=== PATIENT | male | born 1970 | race Caucasian/White ===

== ENCOUNTER 2016-10-21 14:58 | Emergency (ER) | payer SELFPAY ==
[~2016-10-21 14:58] MED LIST: FLUO-1 PO; GEMF600 PO; IBUP600T26 PO; LISI-363 PO
[2016-10-21 15:00] VITALS: BP 143/93; PULSE 93; RESP 15; TEMP 98.2; O2SAT 100
[2016-10-21] MEDS ORDERED: TETANUS/DIPHTHERIA TOXOID ADULT 0.5 ML VIAL IM ONE (16:00)
[2016-10-21] MEDS ORDERED: PROZ40CA PO (16:12)
[2016-10-21] MEDS ORDERED: LISI10TA3 PO (16:12)
[2016-10-21] MEDS ORDERED: TRAZ50TA12 PO (16:12)
[2016-10-21 16:18] VITALS: BP 130/88; PULSE 69; RESP 15; O2SAT 100
[2016-10-21] MEDS ORDERED: CEPH-460 PO (16:50)
--- NOTE | 2016-10-21 16:50 | PD ---
HPI Chief Complaint: Laceration/Skin Injury Time Seen by Provider: 15:51 Travel History International Travel<30 days: No Contact w/Intl Traveler<30days: No Traveled to known affect area: No History of Present Illness HPI 46-year-old male presents to the emergency department for evaluation of a laceration to the [place] hand that occurred approximately one hour ago. Patient states he was moving a couch when a metal spike usually holds leg of the couch on cut his hand. Patient reports history of hypertension. He currently takes lisinopril, Prozac, trazodone. Patient denies any other injury. Patient does not believe his tetanus immunization is up-to-date. Patient denies loss of range of motion of any digits of the left hand. He has currently right-handed. No other complaints at this time. FORMERLY [facility], [facility] Past Medical History Depression: Yes Diminished Hearing: No Headaches: Yes Hypertension: Yes (PT IS NOT CURRENTLY TAKING MEDS FOR HYPERTENSION ) Past Surgical History Other Surgery: Yes (R. CARPAL TUNNEL SURGERY ) Social History Alcohol Use: No Tobacco Use: Yes (1/2 ppd ) Substance Use: No (DENIES) Allergies-Medications (Allergen,Severity, Reaction): Coded Allergies: No Known Allergies (Verified , 10/21/16) Reported Meds & Prescriptions Reported Meds & Active Scripts Active Keflex (Cephalexin) 500 Mg Capsule 500 Mg PO Q8H 7 Days Reported Trazodone (Trazodone HCl) 50 Mg Tab 50 Mg PO HS Lisinopril 10 Mg Tab 10 Mg PO DAILY Prozac (Fluoxetine HCl) 40 Mg Cap 60 Mg PO HS Review of Systems Except as stated in HPI: all other systems reviewed are Neg Physical Exam Narrative GENERAL: Well-nourished, well-developed male patient, afebrile. SKIN: Focused skin assessment warm/dry. Patient has 5 cm V-shaped laceration to the left volar hand. No active bleeding. I am able to visualize the base of the wound. HEAD: Normocephalic. Atraumatic. EYES: No scleral icterus. No injection or drainage. NECK: Supple, trachea midline. No JVD or lymphadenopathy. CARDIOVASCULAR: Regular rate and rhythm without murmurs, gallops, or rubs. Left radial pulse 2+. RESPIRATORY: Breath sounds equal bilaterally. No accessory muscle use. Lungs sounds are clear to auscultation. GASTROINTESTINAL: Abdomen soft, non-tender, nondistended. MUSCULOSKELETAL: No cyanosis, or edema. Patient has full flexion-extension of all digits of the left hand. 5/5 strength of all digits of the left hand. BACK: Nontender without obvious deformity. No CVA tenderness. Data Data Last Documented VS Vital Signs Date Time Temp Pulse Resp B/P (MAP) Pulse Ox O2 Delivery O2 Flow Rate FiO2 10/21/16 16:18 69 15 130/88 (102) 100 Room Air 10/21/16 15:00 98.2 Orders Orders Tetanus/Diphtheria Tox Adult (Tetanus/Di (10/21/16 16:00) MDM Medical Decision Making Medical Screen Exam Complete: Yes Emergency Medical Condition: Yes Medical Record Reviewed: Yes Differential Diagnosis Laceration versus abrasion versus contusion versus tendon laceration versus open fracture Narrative Course 46-year-old male presents to the emergency department for evaluation of laceration to the left hand. Patient gives verbal consent for laceration repair. Tetanus immunization is updated. During laceration repair, the patient became lightheaded and dizzy. His heart rate went to 47. The patient states that this typically happens any time he gives blood or has any needle sticks. He states he has never needed stitches in the past. Patient is laid back and given water. Patient is instructed on proper wound care. He will be discharged prescription for Keflex. Upon reexamination, patient states he feels much better and would like to go home. Procedures Procedure Narrative LACERATION LOCATION: Left hand LENGTH: 5 cm NUMBER OF STITCHES/ORLIN: 6 simple interrupted sutures, 1 horizontal mattress suture REPAIR: The area of the laceration was prepped with Betadine and sterilely draped. The laceration was infiltrated with 1% lidocaine. The wound was copiously irrigated and explored without evidence of foreign body, tendon injury or neurovascular injury. The wound was closed using 4-0 Prolene. This was a single layer repair. A sterile dressing was applied. The patient was advised to keep the dressing clean and dry. Patient tolerated the procedure well. Diagnosis Primary Impression: Laceration of hand Qualified Codes: S61.412A - Laceration without foreign body of left hand, initial encounter Referrals: Primary Care Physician call for appointment Patient Instructions: Care For Your Stitches (ED), General Instructions, Laceration (ED) Additional Instructions: Clean laceration twice daily with soap and water and apply [id number] antibiotic ointment. Take antibiotic as directed until gone. Suture removal in 7-10 days. You may follow up with your primary care physician or return to emergency department for this. Keep laceration clean and dry. No swimming or hot tubs until laceration is healed. Return the emergency department for any acute worsening of symptoms. Med/Other Pt SpecificInfo: Prescription(s) given Scripts Cephalexin (Keflex) 500 Mg Capsule 500 MG PO Q8H for Infection for 7 Days, #21 CAP 0 Refills Prov: Jessica Elaine 10/21/16 Disposition: 01 DISCHARGE HOME Condition: Stable Jessica Elaine Oct 21, 2016 16:50
== END 2016-10-21 17:25 | disposition home or self-care (01) ==
LOC: NEPC 14:58
DX: S61.412A Laceration without foreign body of left hand, initial encounter (principal); W26.8XXA Contact with other sharp object(s), not elsewhere classified, initial encounter; Z23 Encounter for immunization; I10 Essential (primary) hypertension; F32.9 Major depressive disorder, single episode, unspecified; F17.200 Nicotine dependence, unspecified, uncomplicated
CPT/HCPCS: 12002; 90471; 90714